=== PATIENT | male | born 1965 | race Caucasian/White ===

== ENCOUNTER 2022-01-12 08:05 | Outpatient (CLI) | payer OTHER ==
[2022-01-12] MEDS ORDERED: Iopamidol 370 76% 100 ML VIAL ONE (11:24)
== END 2022-01-12 08:06 | disposition home or self-care (01) ==
LOC: CT 08:05
PROVIDERS: ATTEND Urology
DX: C61 Malignant neoplasm of prostate (principal)
CPT/HCPCS: 74178; 78306; A9503; A9541; Q9967

== ENCOUNTER 2022-02-19 07:57 | Outpatient (CLI) | payer OTHER ==
[2022-02-19] MEDS ORDERED: Magnevist 469MG/ML 20 ML VIAL ONE (13:09)
== END 2022-02-19 07:58 | disposition home or self-care (01) ==
LOC: TBSIIMAG 07:57
PROVIDERS: ATTEND Urology
DX: C61 Malignant neoplasm of prostate (principal)
CPT/HCPCS: 72197; A9579

== ENCOUNTER 2022-03-04 11:03 | Outpatient (CLI) | payer OTHER | END 2022-03-04 11:04 | disposition home or self-care (01) | LOC: LABBT 11:03 | PROVIDERS: ATTEND Urology | DX: Z01.818 Encounter for other preprocedural examination (principal); C61 Malignant neoplasm of prostate; E78.5 Hyperlipidemia, unspecified; R97.20 Elevated prostate specific antigen [PSA]; R35.0 Frequency of micturition; G71.00 Muscular dystrophy, unspecified; Z87.891 Personal history of nicotine dependence | CPT/HCPCS: 71046; 80053; 81001; 85027; 85610; 85730; 86850; 86900; 86901; 87086; 87811 ==

== ENCOUNTER 2022-03-23 09:43 | Outpatient (CLI) | payer OTHER | END 2022-03-23 09:44 | disposition home or self-care (01) | LOC: RAD 09:43 | PROVIDERS: ATTEND Urology | DX: C61 Malignant neoplasm of prostate (principal) | CPT/HCPCS: 51600; 74430 ==

== ENCOUNTER 2022-08-24 07:38 | Outpatient (CLI) | payer OTHER | END 2022-08-24 07:39 | disposition home or self-care (01) | LOC: ULT 07:38 | PROVIDERS: ATTEND Family Medicine | DX: R93.89 Abnormal findings on diagnostic imaging of other specified body structures (principal) | CPT/HCPCS: 93880 ==